=== PATIENT | female | born 1955 | race African-American/Black ===

== ENCOUNTER 2022-12-11 07:50 | Emergency (ER) | payer OTHER ==
[~2022-12-11] VITALS: Ht 149.9 cm; Wt 78.0 kg
[2022-12-11] MEDS ORDERED: AMLODIPINE (08:02)
[2022-12-11] MEDS ORDERED: ZANAFLEX (08:02)
[2022-12-11] MEDS ORDERED: NIFEDIPINE (08:02)
[2022-12-11] MEDS ORDERED: FURO20TA90 (08:02)
[2022-12-11] MEDS ORDERED: GABAPENTIN (08:02)
[2022-12-11] MEDS ORDERED: MORPHINE SULFATE 2 MG/1 ML DISP.SYRIN IV ONE (08:15)
[2022-12-11] MEDS ORDERED: IV NORMAL SALINE 1000 ML BAG IV ONE (08:15)
[2022-12-11] MEDS ORDERED: ONDANSETRON 4 MG/2 ML VIAL IV ONE (08:15)
[2022-12-11] MEDS ORDERED: MORPHINE SULFATE 2 MG/1 ML DISP.SYRIN ONE (08:40)
[2022-12-11] MEDS ORDERED: ONDANSETRON 4 MG/2 ML VIAL ONE (08:40)
[2022-12-11 08:42] LABS: HEMATOCRIT 41.8 % (31.2-41.9); MEAN CORPUSCULAR HEMOGLOBIN 28.4 uug (24.7-32.8); MEAN CORPUSCULAR VOLUME 86.3 fL (75.5-95.3); PLATELET COUNT (AUTO) 162 K/uL (179-408)
--- NOTE | 2022-12-11 08:53 | NUR ---
Pt seen by . Consent signed for IV contrast. Safety measures in place. Will continue to monitor.
[2022-12-11 08:55] LABS: BILIRUBIN,DIRECT 0.2 mg/dL (0.0-0.2); BILIRUBIN,TOTAL 0.9 mg/dL (0.2-1.0); POTASSIUM 3.5 mmol/L (3.5-5.1); TOTAL PROTEIN, SERUM 8.2 g/dL (6.4-8.2)
[2022-12-11] MEDS ORDERED: IOHEXOL 300MG/ML 100 ML INFUS..BTL ONE (09:14)
[2022-12-11] MEDS ORDERED: SWABABLE VALVE TRANSFER SET EA MC ONE (09:14)
[2022-12-11] MEDS ORDERED: IV NORMAL SALINE 250 ML IV ONE (09:14)
--- NOTE | 2022-12-11 09:57 | NUR ---
Pt returned from CT scan w/ contrast. Pt in stable condition. Pt stated she is "not in any pain nor nauseous." Safety measures in place. Will continue to monitor.
[2022-12-11 10:07] LABS: *BILIRUBIN,URIN NEGATIVE (NEGATIVE); *BLOOD, URINE NEGATIVE (NEGATIVE); *CLARITY,URINE CLEAR (CLEAR); *COLOR,URINE YELLOW (YELLOW); *KETONES,URINE NEGATIVE (NEGATIVE); LEUKOCYTE ESTERASE ,URINE 2+ (NEGATIVE); NITRITE, URINE NEGATIVE (NEGATIVE); UGLUCOSE NEGATIVE (NEGATIVE)
[2022-12-11] MEDS ORDERED: CEFTRIAXONE 1 G in IV DEXTROSE 5% 50 ML IV ONE (10:15)
[2022-12-11] MEDS ORDERED: METRONIDAZOLE 500 MG/NS 100 ML PIGGYBACK IV ONE (10:15)
[2022-12-11] MEDS ORDERED: CEFTRIAXONE /D5W 50ML IVPB **ER PYXIS IV ONE (10:18)
[2022-12-11] MEDS ORDERED: METRONIDAZOLE 500 MG/NS 100ML 100 ML IV ONE (10:19)
--- NOTE | 2022-12-11 10:27 | NUR ---
Dr. Allen spoke with Hector SAEZ for doctor to doctor report.
[2022-12-11] MEDS ORDERED: MORPHINE SULFATE 4 MG/1 ML DISP.SYRIN IV ONE (11:45)
[2022-12-11] MEDS ORDERED: MORPHINE SULFATE 4 MG/1 ML DISP.SYRIN ONE (11:45)
--- NOTE | 2022-12-11 12:09 | NUR ---
Pt being transferred to [facility]. Waiting for Room placement. Pt in stable condition. Will continue to monitor.
--- NOTE | 2022-12-11 13:18 | NUR ---
[facility] who stated that transportation is currently being set up and that we will be expecting a call shortly.
--- NOTE | 2022-12-11 13:25 | NUR ---
Spoke with Kelly with [facility]. Patient will be transferred to [facility] to Med/Surg unit Room 4013. Number to give report is . Accepting MD is Dr. Champagne. BLS transport was set up by [place] will pick out hand will be at 1600.
--- NOTE | 2022-12-11 13:42 | NUR ---
Gave report to technical associateMEGA Ferrer @[id number]. BLS to nut picker Pt @ 1600. Pt going to Rm 4013. Safety measures in place. Will continue to monitor.
[2022-12-11 13:53] LABS: BACTERIA,URINE NONE SEEN /HPF (NONE SEEN); RBC,URINE NONE SEEN /HPF (0-3); SQUAMOUS EPITHELIAL CELL,UR NONE SEEN /HPF (NONE SEEN)
--- NOTE | 2022-12-11 15:32 | NUR ---
Received call for Hector RN, [place], about Pt's vitals. Pt's vitals are BP: 126/65, T: 98.1, HR: 55, SpO2: 100%, RR: 16. Informed [place] about these vitals. Pt in stable condition.
--- NOTE | 2022-12-11 17:40 | NUR ---
[id number] picked up Pt. Gave report to Jose Claudio. Pt's vitals are stable. Pt transferred in stable condition. Pt left ER in stretcher.
== END 2022-12-11 17:47 | disposition short-term general hospital (02) ==
LOC: ER 07:50
DX: K57.92 Diverticulitis of intestine, part unspecified, without perforation or abscess without bleeding (principal); I10 Essential (primary) hypertension; E78.5 Hyperlipidemia, unspecified; Z88.0 Allergy status to penicillin; Z79.899 Other long term (current) drug therapy; Z20.822 Contact with and (suspected) exposure to COVID-19
CPT/HCPCS: 99285; 74177; 96365; 96375; 96361; 87426; 80076; 80048; 81001; 83690; 85025; 36415; 96376; 87040; J0696; J3490; J2405; Q9967; J2270 ×2; A4663